=== PATIENT | male | born 1995 | race Caucasian/White ===

== ENCOUNTER 2020-06-28 14:19 | Emergency (ER) | payer OTHER ==
[2020-06-28] MEDS ORDERED: NAPROSYN500 MG PO (16:58)
== END 2020-06-28 17:45 | disposition home or self-care (01) ==
LOC: ER1 14:19
DX: M94.0 Chondrocostal junction syndrome [Tietze] (principal); F17.210 Nicotine dependence, cigarettes, uncomplicated
CPT/HCPCS: 71046; 96372; 99283; J1885